=== PATIENT | female | born 1980 | race Two or more races ===

== ENCOUNTER 2020-06-02 14:13 | Emergency (ER) | payer OTHER ==
[2020-06-02] MEDS: SODIUM CHLORIDE 0.9% 1,000 ML IV STA ×2 (18:59→19:45)
[2020-06-02 19:02] VITALS: BP 152/84
[2020-06-02 19:05] LABS: BASOPHILS % (AUTO) 0.4 %; HGB - HEMOGLOBIN 14.1 g/dL (12.0-16.0); LYMPHOCYTES % (AUTO) 37.8 %; MEAN CORPUSCULAR HEMOGLOBIN 32.1 pg (27.0-31.0); MEAN CORPUSCULAR VOLUME 91.8 fL (81.0-99.0); MEAN PLATELET VOLUME 10.4 fL (7.9-10.8); MONOCYTES # (AUTO) 0.6 10^3/uL (0.0-1.0); MONOCYTES % (AUTO) 7.5 %; NEUTROPHILS # (AUTO) 4.2 10^3/uL (1.5-6.6); NEUTROPHILS % (AUTO) 53.8 %; PLT - PLATELET COUNT 304 10^3/uL (130-450); RED BLOOD COUNT 4.39 10^6/uL (4.20-5.40); RED CELL DISTRIBUTION WIDTH 11.9 % (12.0-15.0); WHITE BLOOD COUNT 7.8 x10^3/uL (4.8-10.8)
[2020-06-02 19:16] LABS: ALBUMIN/GLOBULIN RATIO 1.7 (1.0-2.2); BILIRUBIN,TOTAL 1.2 mg/dL (0.2-1.0); CALCIUM 9.6 mg/dL (8.5-10.3); CREATININE 0.6 mg/dL (0.4-1.0); TOTAL PROTEIN 7.9 g/dL (6.7-8.2)
[2020-06-02 19:43] LABS: BILIRUBIN,URINE NEGATIVE (NEGATIVE); GLUCOSE, URINE (UA) NEGATIVE (NEGATIVE); KETONES,URINE (UA) TRACE mg/dL (NEGATIVE); LEUKOCYTE ESTERASE, URINE NEGATIVE (NEGATIVE); NITRITE,URINE NEGATIVE (NEGATIVE); OCCULT BLOOD,URINE SMALL (NEGATIVE); PROTEIN,URINE NEGATIVE (NEGATIVE); UROBILINOGEN,URINE 0.2 (NORMAL) E.U./dL (NORMAL)
--- NOTE | 2020-06-02 19:48 | ED Physician Documentation ---
History of Present Illness - Stated complaint Stated Complaint: DIZZINESS N/V - Chief complaint Chief Complaint: Neuro - History obtained from History obtained from: Patient - History of Present Illness Timing: Prior to arrival - Additonal information Additional information: 40 year old female presents to the emergency department with acute nausea and vomiting that began this morning. She reports that she is also been having chills and tactile fevers. She denies diarrhea or abdominal pain no dysuria urgency or frequency but she has been unable to keep any simple liquids down through the day. She denies pertinent past surgical history. Past medical history includes depression/anxiety for which she takes venalflaxine. She denies drug or alcohol use but does smoke cigarettes Review of Systems Constitutional: reports: Chills, Myalgias. denies: Fever, Fatigue, Weight Loss, Sweats Eyes: reports: Reviewed and negative Ears: reports: Reviewed and negative Nose: reports: Reviewed and negative Throat: reports: Reviewed and negative Cardiac: reports: Reviewed and negative Respiratory: reports: Reviewed and negative GI: reports: Nausea, Vomiting. denies: Abdominal Pain, Constipation, Diarrhea, Hematemesis, Bloody / black stool : denies: Dysuria, Frequency, Hesitancy, Hematuria Skin: reports: Reviewed and negative Musculoskeletal: reports: Reviewed and negative Neurologic: reports: Reviewed and negative PD PAST MEDICAL HISTORY - Past Medical History Past Medical History: No - Past Surgical History Past Surgical History: No - Present Medications Home Medications: Ambulatory Orders Medication Instructions Recorded Confirmed Ondansetron Odt [Zofran] 4 mg TL Q6H PRN #10 tablet 06/02/20 - Allergies Allergies/Adverse Reactions: Allergies Allergy/AdvReac Type Severity Reaction Status Date / Time No Known Drug Allergies Allergy Verified 06/02/20 14:49 - Social History Does the pt smoke?: No Smoking Status: Never smoker Does the pt drink ETOH?: No Does the pt have substance abuse?: No - Immunizations Immunizations are current?: Yes PD ED PE NORMAL - General General: Alert and oriented X 3, No acute distress, Well developed/nourished - Neck Neck: Supple, no meningeal sign, No adenopathy - Cardiac Cardiac: RRR, No murmur - Respiratory Respiratory: No respiratory distress, Clear bilaterally - Abdomen Abdomen: Normal bowel sounds, Soft, Non tender, Non distended - Back Back: No CVA TTP, No spinal TTP - Derm Derm: Normal color, Warm and dry, No rash - Extremities Extremities: No deformity, No tenderness to palpate, Normal ROM s pain - Neuro Neuro: Alert and oriented X 3, washer engineer 2-12 intact, No motor deficit, Normal speech Eye Opening: Spontaneous Motor: Obeys Commands Verbal: Oriented GCS Score: 15 Results - Vitals Vitals: Vital Signs - 24 hr 06/02/20 06/02/20 14:46 19:01 Temperature 36.9 C 37.7 C H Heart Rate 59 L 64 Respiratory 14 20 Rate Blood Pressure 109/71 152/84 H O2 Saturation 100 100 Oxygen O2 Source Room air - Labs Labs: Laboratory Tests 06/02/20 06/02/20 06/02/20 18:50 18:50 19:33 WBC 7.8 RBC 4.39 Hgb 14.1 Hct 40.3 MCV 91.8 MCH 32.1 H MCHC 35.0 RDW 11.9 L Plt Count 304 MPV 10.4 Neut # (Auto) 4.2 Lymph # (Auto) 3.0 [place] # (Auto) 0.6 Eos # (Auto) 0.0 Baso # (Auto) 0.0 Absolute Nucleated RBC 0.00 Nucleated RBC % 0.0 Sodium 138 Potassium 3.4 L Chloride 103 Carbon Dioxide 22 Anion Gap 13.0 BUN 9 Creatinine 0.6 Estimated GFR (MDRD) 111 Glucose 96 Calcium 9.6 Total Bilirubin 1.2 H AST 19 ALT 20 Alkaline Phosphatase 82 Total Protein 7.9 Albumin 5.0 Globulin 2.9 Albumin/Globulin Ratio 1.7 Lipase 29 Urine Color YELLOW Urine Clarity HAZY Urine pH 6.0 Ur Specific [place] 1.015 Urine Protein NEGATIVE Urine Glucose (UA) NEGATIVE Urine Ketones TRACE Urine Occult Blood SMALL H Urine Nitrite NEGATIVE Urine Bilirubin NEGATIVE Urine Urobilinogen 0.2 (NORMAL) Ur Leukocyte Esterase NEGATIVE Urine RBC 0-5 Urine WBC 0-3 Ur Squamous Epith Cells MOD Squamous H Urine Bacteria Moderate H Ur Microscopic Review INDICATED Urine Culture Comments NOT INDICATED Urine HCG, Qual NEGATIVE PD MEDICAL DECISION MAKING - ED course Complexity details: reviewed results, re-evaluated patient, considered differential, d/w patient, d/w family ED course: 40-year-old female presents to the emergency department with acute nausea and vomiting but no abdominal pain. This began this a.m. - Exam in the room [place] able to reproduce pain. She is normotensive and not tachycardic. I do note that she has chills however. Her labs do not reveal any worrisome abnormalities. No leukocytosis or significant alteration in her blood chemistry. It should be noted that her urine shows moderate squames and bacteria but she has no urinary symptoms. In addition she is nitrite and leukocyte esterase negative. Will defer any antibiotics at this time. No indication for advanced imaging. I believe that the cause of her symptoms is likely a viral gastroenteritis. She is able to tolerate p.o. liquids here following Zofran administered IV. She was also given 1 L of crystalloid. Patient will be discharged home to follow-up with primary care provider. Emergent return precautions discussed for suddenly severe abdominal pain fevers uncontrolled vomiting or failure of symptoms to resolve Departure - Departure Disposition: 01 Home, Self Care Clinical Impression: Vomiting Qualifiers: Vomiting type: unspecified Vomiting Intractability: non-intractable Nausea presence: with nausea Qualified Code(s): R11.2 - Nausea with vomiting, unspecified Condition: Stable Record reviewed to determine appropriate education?: Yes Instructions: ED Nausea Vomiting Ch Follow-Up: ANGELO REECE DO [Primary Care Provider] - Prescriptions: Ondansetron Odt [Zofran] 4 mg TL Q6H PRN #10 tablet PRN Reason: Nausea / Vomiting Comments: Zoya your labs today look essentially normal. It also does not appear that you have a urinary tract infection. You most likely have a viral gastroenteritis. This typically runs its course in 24 to 72 hours. Please drink frequent sips of water, broth or half strength Gatorade. If you find that your symptoms are worsening, you develop suddenly severe abdominal pain have fevers or your symptoms do not improve then please return to the emergency department for a second look
[2020-06-02 19:49] LABS: CLARITY,URINE HAZY (CLEAR); HCG UR QUAL NEGATIVE
[2020-06-02] MEDS: ONDANSETRON 4 MG/2 ML VIAL IVP STA (19:50)
[2020-06-02 19:57] LABS: RBC,URINE 0-5 /HPF (0-5); SQUAMOUS EPITHELIAL CELL,UR MOD Squamous (<= Few)
[2020-06-02 19:58] LABS: BACTERIA,URINE Moderate /HPF (None Seen)
== END 2020-06-02 20:35 | disposition home or self-care (01) ==
LOC: ED 14:13
DX: R11.2 Nausea with vomiting, unspecified (principal)
CPT/HCPCS: 36415; 80053; 81001; 81003; 81025; 83690; 85025; 87086; 96361; 96374; 99283